=== PATIENT | female | born 1965 | race Caucasian/White ===

== ENCOUNTER 2020-05-25 14:28 | Emergency (ER) | payer OTHER ==
[~2020-05-25] VITALS: Ht 165.1 cm; Wt 56.7 kg
[~2020-05-25 14:28] MED LIST: SOM350 PO; VIC PO
[2020-05-25 14:29] VITALS: Ht 165.1 cm; Wt 56.7 kg
[2020-05-25 16:43] VITALS: BP 138/94
== END 2020-05-25 16:43 | disposition home or self-care (01) ==
LOC: ED 14:28
DX: F41.0 Panic disorder [episodic paroxysmal anxiety] (principal); Z76.0 Encounter for issue of repeat prescription

== ENCOUNTER 2020-10-29 18:35 | Emergency (ER) | payer BC ==
[~2020-10-29] VITALS: Ht 162.6 cm; Wt 82.1 kg
[2020-10-29 18:41] VITALS: Ht 162.6 cm; Wt 82.1 kg
[2020-10-29] MEDS ORDERED: NAPROSYN500 MG PO (20:59)
[2020-10-29 21:20] VITALS: BP 146/95
== END 2020-10-29 21:20 | disposition home or self-care (01) ==
LOC: ED 18:35
DX: S16.1XXA Strain of muscle, fascia and tendon at neck level, initial encounter (principal); S46.911A Strain of unspecified muscle, fascia and tendon at shoulder and upper arm level, right arm, initial encounter; G43.909 Migraine, unspecified, not intractable, without status migrainosus; Z90.710 Acquired absence of both cervix and uterus; Z88.6 Allergy status to analgesic agent; Z88.1 Allergy status to other antibiotic agents; Z88.8 Allergy status to other drugs, medicaments and biological substances; Z88.2 Allergy status to sulfonamides; X58.XXXA Exposure to other specified factors, initial encounter; Y93.89 Activity, other specified; Y92.89 Other specified places as the place of occurrence of the external cause; Y99.8 Other external cause status
CPT/HCPCS: J1885; J2270; J2405